=== PATIENT | male | born 1935 | race Caucasian/White ===

== ENCOUNTER 2017-01-15 21:49 | Inpatient (IN) | payer OTHER ==
[~2017-01-15] VITALS: Ht 167.6 cm; Wt 81.8 kg
[~2017-01-15 21:49] MED LIST: SIMVASTATIN10 MG PO; VALSARTAN-HCTZ1 EAC1 PO
[2017-01-15 23:01] LABS: HEMATOCRIT 42.6 % (38.0-50.0); MCH 30.5 PG (29.0-34.0); MCHC 33.8 G/DL (30.0-36.0); MCV 90.3 FL (86-99); RBC DIS.WIDTH-CV 13.1 % (11.8-14.6); RBC DIS.WIDTH-SD 43.6 % (39-53); RED BLOOD COUNT 4.72 M/uL (4.00-5.50); WHITE BLOOD COUNT 9.9 K/uL (4.1-10.2)
[2017-01-15 23:09] LABS: CHLORIDE 104 mEq/L (99-109); SODIUM 138 mEq/L (136-147)
[2017-01-15 23:11] LABS: GLUCOSE 101 mg/dL (70-99)
[2017-01-15 23:13] LABS: ANION GAP 8 MEQ/L (2-14)
[2017-01-15 23:13] LABS: ADD MIUA? YES; BILIRUBIN NEGATIVE; BLOOD LARGE; COLOR RED ((YELLOW)); GLUCOSE (STRIP) NEGATIVE; KETONES NEGATIVE; LEUKOCYTES MODERATE; NITRITE NEGATIVE; PH, URINE 6.5 (5-8); PROTEIN (STRIP) 300; UROBILINOGEN 0.2 MG/DL (0.2-1.0)
[2017-01-15 23:14] LABS: TOTAL BILIRUBIN 0.4 mg/dL (0.0-1.0)
[2017-01-15 23:15] LABS: ALKALINE PHOSPHATASE 39 IU/L (3-129); GFR ESTIMATE (CALCULATED) 52 mL/min/
[2017-01-15 23:16] LABS: UREA NITROGEN (BUN) 22 mg/dL (9-23)
[2017-01-15 23:19] LABS: RED BLOOD CELLS TNTC /HPF (0-5)
[2017-01-15 23:20] LABS: UCUL ADDED? YES; WHITE BLOOD CELLS 20-30 /HPF (0-5)
[2017-01-15 23:40] LABS: HEMATOLOGY COMMENT 1 SN; PLAT.SUFFICIENCY ADEQUATE; PLATELET CLUMPS PRESENT - PLATELET COUNT APPEARS ADQ.; PLATELET COUNT UNABLE TO REPORT K/uL (156-360)
[2017-01-16 00:53] LABS: FIBRINOGEN 301 MG/DL (160-450)
[2017-01-16 01:06] LABS: PATIENT PT 10.3 SEC; PROTHROMBIN TIME 10.3 (9.2-11.2); PTT 30.1 (25-32)
[2017-01-16] MEDS ORDERED: LO-DOSE ASPIRIN81 M1 PO (01:55)
[2017-01-16] MEDS ORDERED: PRILOSEC10 MG PO (01:55)
[2017-01-16] MEDS ORDERED: FISH OIL 1,001000 M1 PO (01:55)
[2017-01-16 04:24] VITALS: BP 121/71
[2017-01-16 05:50] LABS: HEMATOCRIT 38.9 % (38.0-50.0); MCH 30.4 PG (29.0-34.0); MCHC 33.2 G/DL (30.0-36.0); MCV 91.7 FL (86-99); MEAN PLAT.VOLUME 10.7 uM^3 (9.0-12.4); PLATELET COUNT 331 K/uL (156-360); RBC DIS.WIDTH-CV 13.2 % (11.8-14.6); RED BLOOD COUNT 4.24 M/uL (4.00-5.50); WHITE BLOOD COUNT 11.8 K/uL (4.1-10.2)
[2017-01-16 06:27] LABS: ANION GAP 8 MEQ/L (2-14); CHLORIDE 105 MEQ/L (99-109); GFR ESTIMATE (CALCULATED) > 59 mL/min/; GLUCOSE 106 mg/dL (70-99); POTASSIUM 4.5 MEQ/L (3.7-5.4); SAMPLE HEMOLYSIS CHECK 0; SAMPLE ICTERIC CHECK 0; SAMPLE LIPEMIA CHECK 0; SODIUM 140 MEQ/L (136-147); UREA NITROGEN (BUN) 24 mg/dL (9-23)
[2017-01-16 07:40] VITALS: BP 124/74
[2017-01-16 11:31] VITALS: BP 136/67
[2017-01-16 15:39] VITALS: BP 123/64
[2017-01-16 21:11] VITALS: BP 119/72
[2017-01-17] VITALS (7 sets, daily range): BP systolic 109–138; BP diastolic 61–71
[2017-01-17] MEDS ORDERED: AUGMENTIN875 MG PO (11:51)
== END 2017-01-17 12:51 | disposition home or self-care (01) | DRG 697 ==
LOC: EME 21:49 → EDOF 01-16 02:38 → 5WEST 01-16 02:38 → EDOF 01-16 02:38 → 5WEST 01-16 04:13
PROVIDERS: Emergency Medicine; Hospitalist
DX: N35.8 Other urethral stricture (principal); R31.0 Gross hematuria; D68.9 Coagulation defect, unspecified; N39.0 Urinary tract infection, site not specified; I10 Essential (primary) hypertension; N20.0 Calculus of kidney; N28.1 Cyst of kidney, acquired; N32.0 Bladder-neck obstruction; N40.1 Benign prostatic hyperplasia with lower urinary tract symptoms; R33.8 Other retention of urine; R80.9 Proteinuria, unspecified; E78.5 Hyperlipidemia, unspecified; K42.9 Umbilical hernia without obstruction or gangrene; K43.2 Incisional hernia without obstruction or gangrene; Z90.81 Acquired absence of spleen; Z79.82 Long term (current) use of aspirin; Z87.442 Personal history of urinary calculi
CPT/HCPCS: 74176; 80048; 80053; 81003; 85027; 85049; 85384; 85610; 85730; 86900; 86901; 86965; 87077; 87086; 87186; 99281; 99285; J0696; J7030; J7050; P9012